=== PATIENT | female | born 1965 | race Caucasian/White ===

== ENCOUNTER 2019-09-13 13:45 | Emergency (ER) | payer SELFPAY ==
[2019-09-13] MEDS ORDERED: ASPIRIN 81 MG TABLET, CHEWABLE PO ONE (14:57)
[2019-09-13] MEDS ORDERED: ONDANSETRON 4 MG TAB.RAPDIS PO ONE (14:57)
--- NOTE | 2019-09-13 14:59 | ER Document Report ---
ED Medical Screen (RME) - General Stated Complaint: SOB/SORE THROAT/CHILLS/COUGH Time Seen by Provider: 09/13/19 14:52 Information source: Patient Notes: Patient presents complaining of chest pain with cough for the past week. Patient reports shortness of breath for the past 3 days with nausea vomiting and diarrhea. Patient states she is vomited about 3 times. Patient reports decrease in weight recently. Patient complains of rib and upper back pain worse with movement and cough. Patient reports voice hoarseness with sore throat. Patient has a history of pulmonary nodule, I have greeted and performed a rapid initial assessment of this patient. A comprehensive ED assessment and evaluation of the patient, analysis of test results and completion of the medical decision making process will be conducted by additional ED providers. Physical Exam - Respiratory Respiratory status: No respiratory distress. No: Labored Chest status: Tender Breath sounds: Nonproductive cough, Rhonchi Chest palpation: Tender
[2019-09-13 15:21] LABS: ABSOLUTE BASOPHILS # (AUTO) 0.1 10^3/uL (0.0-0.2); ABSOLUTE EOSINOPHILS # (AUTO) 0.2 10^3/uL (0.0-0.6); ABSOLUTE LYMPHOCYTES (AUTO) 1.6 10^3/uL (0.5-4.7); ABSOLUTE MONOCYTES (AUTO) 0.7 10^3/uL (0.1-1.4); ABSOLUTE NEUT (AUTO) 7.1 10^3/uL (1.7-8.2); BASOPHILS % (AUTO) 0.9 % (0-2); EOSINOPHILS % (AUTO) 2.1 % (0-6); HEMATOCRIT 43.8 % (36.0-47.0); HEMOGLOBIN 15.7 g/dL (12.0-15.5); LYMPHOCYTES % (AUTO) 16.9 % (13-45); MEAN CORPUSCULAR HEMOGLOBIN 33.5 pg (27.0-33.4); MEAN CORPUSCULAR HGB CONC 35.8 g/dL (32.0-36.0); MEAN CORPUSCULAR VOLUME 93 fl (80-97); MONOCYTES % (AUTO) 6.8 % (3-13); PLATELET COUNT 225 10^3/uL (150-450); RED BLOOD COUNT 4.69 10^6/uL (3.72-5.28); RED CELL DISTRIBUTION WIDTH 14.6 % (11.5-14.0); SEGMENTED NEUTROPHILS % (AUTO) 73.3 % (42-78); TOTAL CELLS COUNTED % (AUTO) 100 %; WHITE BLOOD COUNT 9.7 10^3/uL (4.0-10.5)
[2019-09-13 15:53] LABS: ALBUMIN 4.7 g/dL (3.5-5.0); ALKALINE PHOSPHATASE 111 U/L (38-126); ANION GAP 5 (5-19); ASPARTATE AMINO TRANSFERASE 38 U/L (14-36); BILIRUBIN,DIRECT 0.1 mg/dL (0.0-0.4); BILIRUBIN,TOTAL 0.9 mg/dL (0.2-1.3); BLOOD UREA NITROGEN 12 mg/dL (7-20); CALCIUM 10.2 mg/dL (8.4-10.2); CARBON DIOXIDE 27 mmol/L (22-30); CHLORIDE 104 mmol/L (98-107); CREATINE KINASE 79 U/L (30-135); GLUCOSE 115 mg/dL (75-110); POTASSIUM 4.9 mmol/L (3.6-5.0); TOTAL PROTEIN 7.7 g/dL (6.3-8.2)
--- NOTE | 2019-09-13 18:28 | ER Document Report ---
ED General - General Stated Complaint: SOB/SORE THROAT/CHILLS/COUGH Time Seen by Provider: 09/13/19 14:52 Information source: Patient TRAVEL OUTSIDE OF THE [place] IN LAST 30 DAYS: No - HPI Onset: Other - over the last week Onset/Duration: Gradual Quality of pain: Achy Severity: Moderate Pain Level: 3 Associated symptoms: Nonproductive cough, Diarrhea, Headache, Nausea, Vomiting, Sore throat Exacerbated by: Denies Relieved by: Denies Similar symptoms previously: No Recently seen / treated by doctor: No Notes: 54 year old female with no significant PMH here in the ER for 1 week of a dry cough and 3 days of nausea, vomiting, diarrhea, body aches, shortness of breath, and a sore throat. The patient denies high fevers, chills, sweats. The patient says someone at her place of work was sick but she is unsure if she was tested for COVID. The patient denies recent travel. The patient was given Zofran prior to me seeing her and she had mild relief of her nausea. - Related Data Allergies/Adverse Reactions: No Known Allergies Allergy (Verified 09/13/19 18:38) Past Medical History - General Information source: Patient - Social History Smoking Status: Current Every Day Smoker Frequency of alcohol use: Occasional Drug Abuse: None Lives with: Family Family History: Reviewed & Not Pertinent Physical Exam - Vital signs Vitals: Temp Pulse Resp BP Pulse Ox 98.6 F 73 18 147/62 H 99 09/13/19 14:55 09/13/19 14:55 09/13/19 14:55 09/13/19 14:55 09/13/19 14:55 - Notes Notes: GENERAL: Well-appearing, well-nourished and in no acute distress. HEAD: Atraumatic, normocephalic. EYES: Pupils equal round and reactive to light, extraocular movements intact, sclera anicteric, conjunctiva are normal. ENT: External ears normal, nares patent, oropharynx mildly erythematouns but w ithout exudates. Moist mucous membranes. NECK: Normal range of motion, supple without lymphadenopathy or JVD. LUNGS: Breath sounds clear to auscultation bilaterally and equal. No wheezes rales or rhonchi. HEART: Regular rate and rhythm without murmurs, rubs or gallops. ABDOMEN: Soft, nontender, normoactive bowel sounds. No guarding, no rebound. No masses appreciated. EXTREMITIES: Normal range of motion, no pitting or edema. No clubbing or cyanosis. NEUROLOGICAL: Cranial nerves II through XII grossly intact. Normal speech, normal gait. PSYCH: Normal mood, normal affect. SKIN: Warm, Dry, normal turgor, no rashes or lesions noted. Course - Re-evaluation Re-evalutation: 09/13/19 18:35 The patient is here for viral like symptoms. She has no respiratory distress and no focal infiltrates on chest xray. The patient's repaid strep was negative. The patient's vital signs are within normal limits. Patient tested for COVID19 and she was told she would be called with her results. Patient instructed to orally hydrate and to use Tylenol and Motrin for body aches. Patient prescribed Zofran for nausea as needed. Patient was given an albuterol inhaler in the ER for her shortness of breath. Patient was told to stop smoking as well. 09/13/19 20:01 Patient had an ultrasound ordered by the mid level provider which showed gall stones and a possible liver hemangioma. Patient told to follow up with a General Surgeon and her primary care doctor. - Vital Signs Vital signs: Temp Pulse Resp BP Pulse Ox 98.1 F 73 18 147/62 H 99 09/13/19 18:39 09/13/19 14:55 09/13/19 14:55 09/13/19 14:55 09/13/19 14:55 - Laboratory Result Diagrams: 09/13/19 15:10 09/13/19 15:10 Laboratory results interpreted by me: 09/13/19 09/13/19 15:10 15:10 Hgb 15.7 H MCH 33.5 H RDW 14.6 H Sodium 136.2 L Glucose 115 H AST 38 H Lipase 372.1 H - Diagnostic Test Radiology reviewed: Image reviewed, Reports reviewed Discharge - Discharge Clinical Impression: Viral syndrome, Sore throat, Gallstones Nausea & vomiting Qualifiers: Vomiting type: unspecified Vomiting Intractability: non-intractable Qualified Code(s): R11.2 - Nausea with vomiting, unspecified Condition: Stable Disposition: HOME, SELF-CARE Instructions: COVID-19 Guidance for Persons Under Investigation, Gallbladder Disease ([facility]), Viral Syndrome ([facility]) Additional Instructions: Drink plenty of fluids in the days to come. Use Zofran as needed for nausea and GI upset. Use Tylenol and Motrin for body aches and fevers. Self isolate for 14 days or until you get a negative COVID19. Return to an ER for trouble breathing, shortness of breath, or if worse. Follow up with a General Surgeon if you continue to have gallbladder/gallstone issues. Prescriptions: Ondansetron [Zofran Odt 4 mg Tablet] 4 mg PO Q6H PRN #10 tab.rapdis PRN Reason:
[2019-09-13] MEDS ORDERED: ALBUTEROL SULFATE HFA (90 MCG/PUFF) 8 GM MDI (1 MDI/ER DISP) IH ONE (18:35)
--- NOTE | 2019-09-13 18:42 | RADIOLOGY REPORT (SQ) ---
EXAM DESCRIPTION: CHEST SINGLE VIEW IMAGES COMPLETED DATE/TIME: 09/13/2019 6:32 pm REASON FOR STUDY: cough, sob COMPARISON: None. EXAM PARAMETERS: NUMBER OF VIEWS: One view. TECHNIQUE: Single frontal radiographic view of the chest acquired. RADIATION DOSE: NA LIMITATIONS: None. FINDINGS: LUNGS AND PLEURA: No opacities, masses or pneumothorax. No pleural effusion. MEDIASTINUM AND HILAR STRUCTURES: No masses. Contour normal. HEART AND VASCULAR STRUCTURES: The heart size at the upper limits of normal. Normal vasculature. BONES: No acute findings. HARDWARE: None in the chest. OTHER: No other significant finding. IMPRESSION: 1. NO ACUTE RADIOGRAPHIC FINDING IN THE CHEST. TECHNICAL DOCUMENTATION: JOB ID: [id number] 2010 [employer]- All Rights Reserved Reading location - IP/workstation name: [email or web address]
[2019-09-13] MEDS ORDERED: ALBUTEROL SULFATE HFA (90 MCG/PUFF) 8 GM MDI IH ONE (19:00)
--- NOTE | 2019-09-13 19:53 | RADIOLOGY REPORT (SQ) ---
EXAM DESCRIPTION: U/S ABDOMEN LIMITED W/O DOP IMAGES COMPLETED DATE/TIME: 09/13/2019 7:27 pm REASON FOR STUDY: upper abd/rib/back pain COMPARISON: None. TECHNIQUE: Dynamic and static grayscale images acquired of the abdomen and recorded on PACS. Additio nal selected color Doppler and spectral images recorded. LIMITATIONS: None. FINDINGS: PANCREAS: No masses. Visualized pancreatic duct normal caliber. LIVER: A well circumscribed 1.4 x 1.4 x 1.4 cm hyperechoic lesion in the right hepatic lobe. Consid erations for this finding includes possible hemangioma. Fatty liver. The liver measures 15.1 cm in length, normal size. LIVER VASCULATURE: Normal directional flow of the main portal vein and hepatic veins. GALLBLADDER: Small gallstones. The gallbladder wall measures 2.0 mm, normal wall thickness. No per icholecystic fluid. ULTRASOUND-DETECTED PURCELL'S SIGN: Negative. INTRAHEPATIC DUCTS AND COMMON DUCT: CBD measures 4.0 mm in diameter, normal. The intrahepatic ducts normal caliber. No filling defects. INFERIOR VENA CAVA: Normal flow. AORTA: No aneurysm. RIGHT KIDNEY: The right kidney measures 10.5 cm in length, normal size. Normal echogenicity. No sydnie d or suspicious masses. No hydronephrosis. No calcifications. PERITONEAL AND RIGHT PLEURAL SPACE: No ascites or effusions. OTHER: No other significant findings. IMPRESSION: 1. Small gallstones. 2. No evidence of biliary obstruction. 3. A well-circumscribed right hepatic lobe hyperechoic lesion. Correlation with lab values and furt her evaluation with CT Liver with and without IV contrast. Considerations for this finding includes possible hemangioma. This examination may be performed as an outpatient. 4. Fatty liver. TECHNICAL DOCUMENTATION: JOB ID: [id number] 2010 [employer]- All Rights Reserved Reading location - IP/workstation name: [email or web address]
[2019-09-13 20:17] LABS: APPEARANCE,URINE CLEAR; BILIRUBIN,URINE NEGATIVE (NEGATIVE); COLOR,URINE STRAW; GLUCOSE, URINE NEGATIVE (NEGATIVE); KETONES,URINE NEGATIVE (NEGATIVE); LEUKOCYTE ESTERASE,URINE NEGATIVE (NEGATIVE); NITRITE,URINE NEGATIVE (NEGATIVE); PROTEIN,URINE NEGATIVE (NEGATIVE); URINE SPECIFIC GRAVITY 1.008; UROBILINOGEN,URINE NEGATIVE mg/dL (<2.0)
[2019-09-13 20:35] VITALS: BP 132/82
--- NOTE | 2019-09-14 22:03 | EKG REPORT ---
SEVERITY:- BORDERLINE ECG - SINUS RHYTHM PROBABLE LEFT ATRIAL ABNORMALITY : Confirmed by: Savannah Ford MD 14-Sep-2019 22:02:27
== END 2019-09-13 20:06 | disposition home or self-care (01) ==
LOC: ER 13:45
DX: B34.9 Viral infection, unspecified (principal); K80.20 Calculus of gallbladder without cholecystitis without obstruction; R05 Cough; R11.2 Nausea with vomiting, unspecified; R19.7 Diarrhea, unspecified; R06.02 Shortness of breath; J02.9 Acute pharyngitis, unspecified; K76.0 Fatty (change of) liver, not elsewhere classified; F17.200 Nicotine dependence, unspecified, uncomplicated; Z20.828 Contact with and (suspected) exposure to other viral communicable diseases
CPT/HCPCS: 93005; 99284; 36415; 87070; 87880; 82550; 83690; 85025; 87635; 80053; 81001; 84484; 71045; 76705; 93010; S0119; J3490; C9803

== ENCOUNTER → 2020-03-23 | Outpatient (CLI) | payer BC ==
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
== END ==
LOC: RAD 15:27
PROVIDERS: ATTEND Orthopaedic Surgery
DX: M75.92 Shoulder lesion, unspecified, left shoulder (principal); M25.512 Pain in left shoulder; M50.123 Cervical disc disorder at C6-C7 level with radiculopathy
CPT/HCPCS: 72141